=== PATIENT | male | born 1960 | race Caucasian/White ===

== ENCOUNTER 2019-01-26 07:51 | Emergency (ER) | payer MEDICARE ==
--- NOTE | 2019-01-26 08:03 | ED.PDOC ---
History of Present Illness - General Chief Complaint: Problem Stated Complaint: testicular swelling Time Seen by Provider: 01/26/19 08:01 Source: patient Exam Limitations: no limitations - History of Present Illness Initial Comments: Raffi Austin 58 y/o male resident at [facility] came to ER with pain genitalia for the last one week stated was prescribed steroids but have not taken any.Has history of DM2 uncontrolled.Had also pain on urination. Timing/Duration: week - one Quality: moderate, dull, steady Radiation: scrotal Activites at Onset: none Prior abdominal problems: none Sexual intercourse history: not active Worsening Factors: nothing Associated Symptoms: dysuria Allergies/Adverse Reactions: Allergies NO KNOWN ALLERGY Allergy (Unverified 07/25/12 09:51) Home Medications: Ambulatory Orders Acetaminophen [Tylenol Arthritis Pain] 650 mg PO Q4H PRN 09/02/15 Albuterol Inhaler [Ventolin Hfa Inhaler] 2 inh INH Q4H PRN 09/02/15 Carvedilol [Coreg] 6.25 mg PO BID 09/02/15 Fluticasone/Salmeterol 500/50 [Advair 500/50 Diskus] 1 puff INH DAILY 09/02/15 Furosemide Tab [Lasix Tab] 40 mg PO QD@0900,1700 09/02/15 Levalbuterol HCl 1.25 mg IN Q4H PRN 09/02/15 Lisinopril 40 mg PO DAILY 09/02/15 Metformin HCl [Glucophage] 500 mg PO BID 09/02/15 Simvastatin 20 mg PO DAILY 09/02/15 Spironolactone 25 mg PO DAILY 09/02/15 Tiotropium [place] Monohydrate [Spiriva Handihaler] 1 puff IN DAILY 09/02/15 Ondansetron HCl [Zofran] 4 mg PO Q4HR PRN #8 tab 09/04/15 Sulfa/Trimeth 800/160 (Ds) Tab [Bactrim DS Tab] 1 ea PO BIDFD #20 tab 09/04/15 Review of Systems - Review of Systems Genitourinary: States: see HPI All other Systems: Reviewed and Negative, No Change from Baseline Past Medical History (General) - Patient Medical History Hx Seizures: No Hx Stroke: No Hx Asthma: Yes Hx of COPD: Yes Hx Cardiac Disorders: Yes Hx Congestive Heart Failure: Yes Hx Pacemaker: No Hx Hypertension: Yes Hx Diabetes: Yes Hx MRSA: Yes Hx Other PMH: Yes - treatment for genital wart MRSA Source:: inscision Surgical History: coronary bypass surgery, other - right orchiectomy;left BKA - Vaccination History Hx Influenza Vaccination: Yes - 2013 Hx Pneumococcal Vaccination: Yes - 2012 - Social History Hx Tobacco Use: Yes Hx Alcohol Use: No Hx Substance Use: No Hx Physical Abuse: No Hx Emotional Abuse: No Family Medical History - Family History Father Living Status: Cause of : [place] Hx Cardiac Disease: Yes Physical Exam - Physical Exam General Appearance: Alert, Anxious, No apparent distress Eyes, Ears, Nose, Throat Exam: normal ENT inspection, pharynx normal Neck: supple Cardiovascular/Respiratory: regular rate, rhythm, normal peripheral pulses, normal breath sounds, murmur - 2nd LICS Gastrointestinal/Abdominal: soft, no organomegaly, tenderness - lower abdomen Male Genital Exam: normal prostate, epididymal tenderness, inguinal tenderness, scrotum tenderness (R), urethral discharge, other - scrotal tenederness nad swelling;tenderness perineum Back Exam: no CVA tenderness, no vertebral tenderness Extremity: no pedal edema, no calf tenderness, other - LBKA Neurologic: alert, oriented x 3 Skin Exam: normal color, warm/dry Progress - Progress Progress: 01/26/19 08:29 Vital Signs - 8 hr 01/26/19 08:17 Temperature 99.6 F Pulse Rate [ 78 left brachial] Respiratory 16 Rate Blood Pressure 96/49 [left brachial] O2 Sat by Pulse 91 L Oximetry - Results/Orders Results/Orders: 01/26/19 09:45 EKG STAT 01/26/19 10:58 BLOOD CULTURE Stat 01/26/19 11:37 Catheter:Estevez QSHIFT Laboratory Results - last 24 hr 01/26/19 01/26/19 01/26/19 08:42 08:42 10:37 WBC 12.6 H RBC 2.76 L Hgb 8.3 L Hct 25.0 L MCV 90.7 MCH 30.3 MCHC 33.4 RDW 17.3 H Plt Count 165 MPV 7.9 Absolute Neuts (auto) 11.30 H Absolute Lymphs (auto) 0.40 L Absolute Monos (auto) 0.80 Absolute Eos (auto) 0.00 Absolute Basos (auto) 0.00 Neutrophils % 90.0 H Lymphocytes % 3.5 L Monocytes % 6.0 Eosinophils % 0.1 L Basophils % 0.4 PT 11.3 H INR 1.13 PTT (SP) 34.0 H Sodium 131 L Potassium 4.1 Chloride 96 L Carbon Dioxide 22 Anion Gap 17.1 BUN 63 H Creatinine 3.34 H BUN/Creatinine Ratio 18.9 Random Glucose 114 H Serum Osmolality 281.5 Lactic Acid 2.2 Calcium 8.7 Magnesium 1.6 L Total Bilirubin 0.7 Direct Bilirubin 0.2 Indirect Bilirubin 0.5 AST 54 H ALT 86 H Alkaline Phosphatase 93 Creatine Kinase 18 L CK-MB (CK-2) 2.1 CK-MB (CK-2) % Not Reportable Troponin I 0.78 H* Serum Total Protein 6.3 L Albumin 2.5 L Urine Color Yellow Urine Appearance Sl cloudy Urine pH 5.0 Ur Specific [place] 1.020 Urine Protein >=300 H Urine Glucose (UA) Negative Urine Ketones Negative Urine Blood Negative Urine Nitrite Negative Urine Bilirubin Small H Urine Urobilinogen 0.2 Ur Leukocyte Esterase Negative Urine RBC 0-1 Urine WBC 1-3 Ur Epithelial Cells 0 Amorphous Sediment 3+ Urine Bacteria 1+ Hyaline Casts 0-1 Urine Yeast 1+ - EKG/XRAY/CT EKG: Sinus, LVH, no ST T wave changes Comments: HR-73 CT Ordered: Yes - see full report Departure - Departure Clinical Impression: NSTEMI (non-ST elevated myocardial infarction), CKD (chronic kidney disease) stage 4, GFR 15-29 ml/min, Scrotal swelling Abdominal pain Qualifiers: Abdominal location: lower abdomen, unspecified Qualified Code(s): R10.30 - Lower abdominal pain, unspecified Time of Disposition: 14:57 Disposition: Transfer to Hospital Condition: Fair Departure Forms: Patient Portal Self Enrollment Referrals: KANDACE PRIETO [Primary Care Provider] - 1-2 Weeks Home Medications: Ambulatory Orders Acetaminophen [Tylenol Arthritis Pain] 650 mg PO Q4H PRN 09/02/15 Albuterol Inhaler [Ventolin Hfa Inhaler] 2 inh INH Q4H PRN 09/02/15 Carvedilol [Coreg] 6.25 mg PO BID 09/02/15 Fluticasone/Salmeterol 500/50 [Advair 500/50 Diskus] 1 puff INH DAILY 09/02/15 Furosemide Tab [Lasix Tab] 40 mg PO QD@0900,1700 09/02/15 Levalbuterol HCl 1.25 mg IN Q4H PRN 09/02/15 Lisinopril 40 mg PO DAILY 09/02/15 Metformin HCl [Glucophage] 500 mg PO BID 09/02/15 Simvastatin 20 mg PO DAILY 09/02/15 Spironolactone 25 mg PO DAILY 09/02/15 Tiotropium [place] Monohydrate [Spiriva Handihaler] 1 puff IN DAILY 09/02/15 Ondansetron HCl [Zofran] 4 mg PO Q4HR PRN #8 tab 09/04/15 Sulfa/Trimeth 800/160 (Ds) Tab [Bactrim DS Tab] 1 ea PO BIDFD #20 tab 09/04/15 Transfer to Outside Facility - Transfer Information Accepting Provider:: Dr. 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
[2019-01-26] MEDS ORDERED: fentaNYL CITRATE INJ 50 MCG/ML AMP IV ONE ×2 (08:53→11:38)
[2019-01-26] MEDS ORDERED: ASPIRIN (CHEWABLE) 81 MG TAB PO ONE (09:39)
--- NOTE | 2019-01-26 10:10 | CT ---
EXAM DESCRIPTION: Abdoment/Pelvis w/o Contrast CLINICAL HISTORY: 58 years Male, pelvic pain/renal insufficiency COMPARISON: None available. TECHNIQUE: Contiguous 3 mm axial images were obtained from the lung bases to the level of the proximal femora without the administration of intravenous or oral contrast. Sagittal and coronal reconstructions were reviewed. FINDINGS: Limited evaluation of the solid organs due to the lack of intravenous contrast. THORAX: The heart is mildly enlarged in size. Bilateral pleural effusions, larger on the left with associated airspace opacities of the bilateral lower lobes, representing atelectasis and/or pneumonia. LIVER: The liver demonstrates normal size and density with no intrahepatic biliary ductal dilatation. GALLBLADDER: Significant gallbladder wall edema. No radiopaque gallstones are visualized. PANCREAS: Appears normal with no cystic or solid lesions. SPLEEN: Normal ADRENAL GLANDS: Normal with no nodules or masses. KIDNEYS: Nonobstructive calculi measuring up to 4 mm are noted in both kidneys. Few simple cysts are identified in the left kidney. 3.6 x 3.1 cm cyst with septation and calcification is identified in the anterior aspect of the interpolar region of the left kidney. This probably represents a Bosniak type II cyst. A simple cyst is identified in the inferior pole of the left kidney. Bilateral perinephric stranding is identified. The visualized ureters appear grossly unremarkable. STOMACH: The stomach is well-distended with no gross abnormality. SMALL BOWEL: The small bowel loops demonstrate variable degrees of distention with no abnormal dilatation or other signs to suggest bowel obstruction. LARGE BOWEL: Significant wall thickening and inflammatory stranding of the ascending colon is noted. Findings could be secondary to third spacing versus colitis. The appendix is not definitively seen. No evidence of free intraperitoneal air or fluid. RETROPERITONEUM: The abdominal aorta is nonaneurysmal with moderate to severe atherosclerosis. The inferior vena cava is normal in size and caliber. Multiple subcentimeter retroperitoneal lymph nodes are identified which are probably reactive in nature. URINARY BLADDER: Mild circumferential wall thickening of the urinary bladder is noted. The prostate gland seminal vesicles appear normal. ADDITIONAL FINDINGS: Small fat-containing right inguinal hernia is noted. BONES: Mild degenerative changes are identified in the visualized bones.No evidence of osteophytic or osteoblastic lesions. IMPRESSION: 1. Bilateral pleural effusions larger on the left side with associated airspace opacities, representing atelectasis and/or pneumonia. 2. Nonobstructive nephrolithiasis of both kidneys. 3. Significant gallbladder wall edema, bilateral perinephric stranding is noted. Small volume ascites is also identified. Findings most likely represent sequelae of third spacing. 4. The ascending colon demonstrates wall thickening and inflammatory stranding. Findings could represent colitis versus changes related to volume overload. This exam was performed according to our departmental dose-optimization program, which includes automated exposure control, adjustment of the mA and/or kV according to patient size and/or use of iterative reconstruction technique. Electronically signed by: Skyla Jones MD 01/26/2019 10:08 AM CDT
[2019-01-26] MEDS ORDERED: PIPERACILLIN/TAZOBACTAM 3.375 GM in SODIUM CHLORIDE 0.9% 100ML 100 ML IVPB ONE (10:58)
[2019-01-26] MEDS ORDERED: SODIUM CHLORIDE 0.9% 100ML 100 ML IVPB ONE (11:39)
[2019-01-26] MEDS ORDERED: PIPERACILLIN/TAZOBACTAM 3.375 GM VIAL IVPB ONE (11:39)
--- NOTE | 2019-01-26 13:13 | US ---
Study: Scrotal sonogram. Indication: pain Technique: Multiplanar grayscale Doppler sonographic images of the scrotum obtained. Findings: The right testicle measures 4.5 x 3.3 x 2.3. The left testicle surgically absent . The right epididymal head measures 1.0 cm. Appropriate color Doppler flow to the right testicle which demonstrates a normal appearance. Hyperechoic tissue noted within the left scrotum concerning for fat-containing a inguinal hernia. No hydrocele. No varicocele. Impression: Normal sonographic appearance of the right testicle. Hyperechoic tissue noted within the left scrotum concerning for fat-containing a inguinal hernia. CT could better evaluate as clinically indicated. Electronically signed by: Young Urbina MD 01/26/2019 1:11 PM CDT
[2019-01-26] MEDS ORDERED: SODIUM CHLORIDE 0.9% 500ML 500 ML IVS ONE (14:11)
[2019-01-26 15:15] VITALS: BP 101/48; TEMP 99.1; O2SAT 96
== END 2019-01-26 15:28 | disposition short-term general hospital (02) ==
LOC: ER 07:51
DX: I21.4 Non-ST elevation (NSTEMI) myocardial infarction (principal); R10.30 Lower abdominal pain, unspecified; N18.4 Chronic kidney disease, stage 4 (severe); N50.89 Other specified disorders of the male genital organs; N50.811 Right testicular pain; R30.0 Dysuria; J44.9 Chronic obstructive pulmonary disease, unspecified; I50.9 Heart failure, unspecified; E11.22 Type 2 diabetes mellitus with diabetic chronic kidney disease; I13.0 Hypertensive heart and chronic kidney disease with heart failure and stage 1 through stage 4 chronic kidney disease, or unspecified chronic kidney disease; Z95.1 Presence of aortocoronary bypass graft; Z87.891 Personal history of nicotine dependence; Z79.899 Other long term (current) drug therapy; Z79.84 Long term (current) use of oral hypoglycemic drugs
CPT/HCPCS: 36415; 74176; 76870; 80048; 80076; 81001; 82550; 82553; 83605; 84484; 85025; 85610; 85730; 93005; J2543; J3010; J7040; J7050